=== PATIENT | female | born 1955 | race Caucasian/White ===

== ENCOUNTER 2023-04-16 11:00 | Outpatient (RCR) | payer BC, SELFPAY | END 2023-06-30 14:33 | disposition home or self-care (01) | PROVIDERS: PCP Family Medicine; Visit Provider Orthopaedic Surgery | DX: M54.50 Low back pain, unspecified (principal); Z96.641 Presence of right artificial hip joint; R53.1 Weakness; M25.551 Pain in right hip; Z51.89 Encounter for other specified aftercare | CPT/HCPCS: 97110; 97140; 97161 ==

== ENCOUNTER 2024-08-03 06:17 | Day surgery (SDC) | payer MEDICARE, BC, SELFPAY ==
[2024-08-03] VITALS (9 sets, daily range): BP systolic 139–157; BP diastolic 81–93; PULSE 72–88; RESP 16–20; TEMP 36.8; O2SAT 96–97; BMI 29.0
[2024-08-03] MEDS: LIDOCAINE 1%-EPI 1:100,000 20 ML INFILTRATI (07:00)
[2024-08-03] MEDS: BUPIVACAINE 0.5 %/EPI 1:200K INJECTION (07:00)
--- NOTE | 2024-08-03 07:09 | SUR.PREOP ---
SAME DAY SURGERY LOCAL INJECTION SITE VERIFICATION WAS PERFORMED BY SURGEON/PA AND PATIENT PRIOR TO LOCAL ANESTHETIC BEING INJECTED TO OPERATIVE SITE.
--- NOTE | 2024-08-03 07:38 | P.ORPRC_ITS ---
Procedure Note Date of procedure: 08/03/24 Procedure: Preop diagnosis: Left hand middle and ring finger stenosing tenosynovitis Postop diagnosis: Left hand middle and ring finger stenosing tenosynovitis Procedure: Left hand middle and ring finger A1 elvia release Anesthesia: Local Surgeon: Sarabjit Wiggins MD special education educational assistant: KRYSTAL Harper EBL: 2 mL Complications: None Specimens: None Drains: None Preoperative antibiotics: None Indications: The patient has a history of left upper extremity middle and ring finger painful catching and locking. Despite appropriate non operative management including flexor tendon sheath corticosteroid injections they continue to have symptoms. Operative intervention was recommended. The risks, benefits alternatives and expected outcomes were discussed in detail. These included but were not limited to: Infection, bleeding, injury to blood vessel or nerve, venous thromboembolism. All questions were answered to their satisfaction. The patient was placed supine on the operating room table. Local anesthesia was established with 0.5% Marcaine with epinephrine and 2% lidocaine with epinephrine. The hand was prepped and draped in usual sterile fashion. A transverse incision was made centered over the base of the middle and ring fingers in the distal palmar crease. Subcutaneous dissection was taken through the palmar fascia to the flexor tendons with the tenotomy scissors. The A1 elvia was released with the tenotomy scissors. Active flexion and extension of the fingers shows no catching or locking, no bowstringing of the flexor tendons. The wound was closed with interrupted nylon sutures. A dry dressing was applied. Sponge and needle counts were correct x 2. The patient tolerated the procedure well, there were no apparent complications. They were sent to same day surgery in satisfactory condition. Plan: Use of the hand as tolerates. Discontinue the intraoperative dressing on postoperative day 3 and may get the wound wet as tolerates. Follow up in the office in 2 weeks for a wound check and suture removal.
== END 2024-08-03 08:09 | disposition home or self-care (01) ==
LOC: OR 06:19
PROVIDERS: PCP Family Medicine; Visit Provider Orthopaedic Surgery
PROC: (CPT 26055; principal; 2024-08-03 07:15)
DX: M65.842 Other synovitis and tenosynovitis, left hand (principal); M65.332 Trigger finger, left middle finger; M65.342 Trigger finger, left ring finger
CPT/HCPCS: 26055 ×2; J3490

== ENCOUNTER 2024-12-29 10:52 | Emergency (ER) | payer MEDICARE, BC, SELFPAY ==
--- OUTSIDE RECORDS SUMMARY | 2024-12-29 10:54 | XMS_ITS | Continuity of Care Document ---
Author Organization [facility] Address [address] [place] [address] Phone Care Team Providers Care Custom Shoemaker Name Role Phone Elder LUCAS, PhD, Alexander Unavailable Unavai lable Allergies, Adverse Reactions, Alerts Substance Reaction Status Criticality Sulfa (Sulfonamide Antibiotics) Active No Information erythromycin base Active No Informa tion Medications Medication Instructions Dosage Effective Dates (start - stop) Status Comments TRAMADOL HCL (unknown strength) Not Available - Active VITAMIN D3 (unknown strength) Not Available - Active TYLENOL (unknown strength) Not Available - Active SINGULAIR (unknown strength) Not Available - Active DULOXETINE HCL (unknown strength) Not Available - Active DICLOFENAC SODIUM (unknown strength) Not Available - Active ROBERT-D 24 HOUR (unknown strength) Not Available - Active Procedures Procedure Date Office/Outpatient [place] [facility] [place] Directives Directive Yes / No Effective Date File Name No Information Encounters Encounter Description Practice Location Reason(s) For Visit Diagnoses Date Provider Providers Copied on Encounter [facility], [address], [place], [place], [id number], [place] tel:[phone] [facility] No Information 0 Elder Munoz. [facility], [address], [place], [address], [place]. [phone] Office/Outpat ient Visit,[facility], [facility], [address], [place], [place], [id number], [place] tel:[phone] [facility] [place] Osteoarthritis of hip, unspecified 9 Elder Munoz. [facility], [address], [place], [address], [place]. tel:[phone] Referring Provider: Vickie Parham , [facility] [address], [place], [address]. tel:[phone] Family History Family Member Type Diagnosis Age At Onset No Information Payers Payer name Insurance type Covered libertarian ID Nemo santiago(s) [facility] [id number] [facility] [id number] Social History Type Description Quantity Date Captured Comments Sex Female Smoking Status No Information Chief Complaint And Reason For Visit No Information Reason For Referral Reason For Referral No Information History Of Present Illness Encounter Date Complaint History Of Prese nt Illness No Information Functional Status Date Functional Assessmen t No Information Instructions Date Instruction Additional Infor mation No Information Assessments Type Assessment Date No Information Patient Care Teams Name Effective Dates (start - stop) Status Members No Information
--- OUTSIDE RECORDS SUMMARY | 2024-12-29 10:54 | XMS_ITS | Clinical Summary ---
Author Organization [facility] Address [address] [place] [address] Care Team Providers Care Flat Breakdown Processor Name Role Phone Vickie Parham MD Primary Care Provide r Allergies Active Allergy Reactions Criticality Noted Date Comments Erythromycin 03/13/2007 Guaifenesin Anaphylaxis 09/01/2008 Lisinopril Cough 09/30/2022 Sulfa (Sulfonamide Antibiotics) Edema,Erythema 09/16/2019 Per patient Azithromycin 03/13/2007 Medications Inhalational Spacing Device (POCKET CHAMBER)Indication s:Unspecified asthma(493.90) For home use. 1 Device 0 08/21/20 12 Active fexofenadine (ROBERT) 180 mg tabletIndications: Unspecified asthma(493.90) Take 1 tablet by mouth once daily. 30 tablet 11 04/27/20 13 Active Blood Pressure Test Kit-Large (QUICK RESPONSE BP MONITOR) KitIndications:Francia vated BP As directed. Arm cuff, diagnosis 401.0 hypertension 1 Kit 0 07/22/20 13 Active Foot Care Products padsIndications:Fl at feet, bilateral As directed. Bilateral insoles/arch supports for flat feet. 2 pair. 4 Each 02/21/20 17 Active Cholecalciferol, Vitamin D3, (VITAMIN D-3) 2,000 unit tablet Take 1 tablet by mouth once daily. 0 10/29/19 18 Active multivitamin (MVI) tablet Take 1 tablet by mouth once daily. 0 10/29/19 18 Active medication order composer [employer] 750 CBD oil - 5 drops sublingually morning and at bedtime 0 04/11/20 22 Active fluticasone (50 mcg per actuation) nasal solution (FLONASE)Indicatio ns:Allergic rhinitis, unspecified seasonality, unspecified trigger Inhale 2 Sprays to both nostrils once daily. 16 g 5 09/17/20 22 Active acyclovir (ZOVIRAX) 400 mg tabletIndications: Recurrent cold sores Take 1 Tablet (400 mg) by mouth three times daily. 21 Tablet 3 10/24/19 24 Active EPINEPHrine (EPIPEN) 0.3 mg/0.3 mL auto-injectorIndic ations:Allergy, subsequent encounter Use as directed 1 Each 1 10/24/19 24 Active diclofenac (VOLTAREN) 75 mg delayed-release tabletIndications: Arthralgia, unspecified joint Take 1 Tablet (75 mg) by mouth two times daily with meals. 180 Tablet 3 10/24/19 24 Active albuterol HFA (PRO-AIR; VENTOLIN; PROVENTIL) 90 mcg/actuation inhalerIndications :Mild intermittent reactive airway disease without complication (HC) Inhale 1-2 Puffs by mouth every 4 hours if needed for Shortness Of Breath or Wheezing. 1 Each 3 08/09/20 24 Active losartan (COZAAR) 50 mg tabletIndications: HTN (hypertension) Take 1 Tablet (50 mg) by mouth once daily. 90 Tablet 3 09/15/20 24 Active montelukast (SINGULAIR) 10 mg tabletIndications: Mild intermittent asthma without complication (HC) TAKE 1 TABLET(10 MG) BY MOUTH AT BEDTIME 90 Tablet 11/10/19 25 Active DULoxetine (CYMBALTA) 20 mg Delayed-release capsuleIndications :Fibromyalgia TAKE 1 CAPSULE(20 MG) BY MOUTH EVERY DAY 90 Capsule 11/10/19 25 Active rosuvastatin (CRESTOR) 5 mg tabletIndications: Mixed hyperlipidemia TAKE 1 TABLET(5 MG) BY MOUTH AT BEDTIME 90 Tablet 1 11/22/19 25 Active dwszrts-wndrvkxn-a utalbital (325-40-50 mg) capsuleIndications :Migraine equivalent Take 1 Capsule by mouth every 4 hours if needed for Migraine. MAX 6 CAPSULES DAILY 30 Capsule 12/29/19 25 Active Active Problems Problem Noted Date Diagnosed Date Degenerative tear of meniscus of left knee 01/16 HTN (hypertension) 09/28/2013 Osteoarthritis of left knee 04/05/2013 Degenerative meniscus tear 04/05/2013 Unspecified asthma(493.90) 02/09/2008 Allergic rhinitis, cause unspecified 02/09/2008 Migraine, unspecified, witho ut mention of intractable migraine without mention of status migrainosus 02/09/2008 Encounters Date Type Department Care Team Description 12/29/2024 Nurse Triage [facility] [address] [facility] [place] [address] Vickie Parham MD Head Injury 12/27/2024 Telephone [facility] [address] [place] [address] Vickie Parham MD Headache 2024 Refill [facility] [address] [place] [address] Vickie Parham MD Refill Request (Rosuvastatin) 11/09/2024 Refill [facility] [address] [facility] [place] [address] Vickie Parham MD Refill Request (Montelukast, Duloxetine) from Last 3 Months Immunizations Immunization Administration Dates Next Due AMB Influenza, IIV4 PF (=>6 mos Flulaval,Fluzone Fluarix)(Flu Clinic Only) 07/06/2020,07/13/2018,10/04/2014 COVID-19 VACCINE SPIKEVAX (M ODERNA 50MCG/0.5ML) 12YO+ PFS 07/23/2024,10/14/2023 COVID-19 vaccine (Moderna 100mcg/0.5mL) PF, MDV 01/04/2021,12/07/2020 COVID-19 vaccine (Pfizer-Bio NTech 30mcg/0.3mL) 12YO+ BIVALENT PF, MDV 09/09/2022 Hepatitis A (Adult) 04/27/2013 Hepatitis B (Adult) 03/14/1999,12/07/1998,1998 Influenza, IIV3 (Age >=3 years) 09/28/20 13,10/22/2012,08/06/2005,2003 Influenza, IIV4 11/24/2019,09/15/2017,07/05/2016 Influenza, Inactivated AIIV4 (Age 65+ Years) Preserv Free 10/14/2023,08/22/2022,08/23/2021 Influenza, Inactivated IIV3 (Age 65+ Years) Preserv Free 07/23/2024 Influenza, RIV3 (Age =>18 Years) 10/24/2015 Pneumococcal Conj 20-valent (Prevnar 20) 10/24/2023 Pneumococcal Poly,23-Valent (Pneumovax) 07/10/2021 Rabies Vaccine 08/31/2008 Td (Age >=7 Years) 04/09/2005 Tdap 09/17/2022,04/23/2012 Zoster (Shingrix-RZV, recombinant) 11/27/2021, Zoster (Zostavax-ZVL, live) 10/11/2013 Family History Medical History Relation Name Comments Allergies Brother 4 Hypertension Brother 5 Hypertension Brother 6 Other Brother 7 multiple sclero sis Hypertension Father Heart Disease Mother Other Mother Depression Cancer-breast No Family History Cancer-ovarian No Family History Relation Name Status Comments Brother 1 Alive Brother 2 Alive Brother 3 Alive Brother 4 Brother 5 Brother 6 Brother 7 Daughter Tamsen Alive Father (Age 47) [place] Maternal Grandfather Maternal Grandmother Mother Alive Paternal Grandfather Paternal Grandmother Son 1 Antoni Alive Son 2 Marlon Alive Social History Tobacco Use Types Packs/Day Years Used Date Smoking Tobacco: Never Smokeless Tobacco: Never Tobacco Cessation:Counseling Given: Yes Alcohol Use Standard Drinks/Week Comments No 0 (1 standard drink = 0.6 oz pur e alcohol) once a year PHQ-2 Answer Date Recorded PHQ-2 TOTAL SCORE 1 10/24/2023 Social Connections Answer Date Recorded Do you often feel lonely or isolated from those around you? 0 11/05/2023 Financial Resource Strain Answer Date R ecorded Difficulty of Paying Living Expenses 3 11/05/2023 Difficulty of Paying Living Expenses Not on file 11/05/2023 Food Insecurity Answer Date Recorded Do you worry your food will run out before you are able to buy more? 1 11/05/2023 Transportation Needs Answer Date Record ed Does lack of transportation keep you from medica l appointments? 1 11/05/2023 Does lack of transportation keep you from work, meetings or getting things that you need? 1 11/05/2023 Housing Stability Answer Date Recorded What is your housing situation today? 1 11/05/2023 Utilities Answer Date Recorded Do you have trouble paying f or utilities (for example, heat, electricity, water, phone)? 1 11/05/2023 Comments No Sex and Gender Information Value Date Recorded Sex Assigned at Not on file Legal Sex Female 5:24 AM VOCATIONAL DIRECTOR Gender Identity Not on file Sexual Orientation Not on file Occupation Industry Job Start Date Job End Date Not on file Not on file Not on file Not on file Obstetrics History Para Term AB IAB SAB Ectopic Multiple Livin g Live Births 4 3 3 3 Date Outcome GA Total Labor Labor/2nd/3rd Weight Sex Type Anes PTL Suzie A1 A5 Name Clin Term Term Term Last Filed Vital Signs Vital Sign Reading Time Taken Comments Blood Pressure 129/83 07/09/2024 10:48 AM CDT Pulse 70 07/09/2024 10:48 AM CDT Temperature 36.5 C (97.7 F) 07/09/2024 10:48 AM CDT Respiratory Rate 18 05/26/2021 9:27 AM CDT Oxygen Saturation 99% 07/09/2024 10:48 AM CDT Inhaled Oxygen Concentration - - Weight 77.7 kg (171 lb 6.4 oz) 05/25/2024 1:43 P M CDT Height 160 cm (5' 3) 12/26/2023 3:08 PM CDT Body Mass Index 30.36 12/26/2023 3:08 PM CDT Plan of Treatment Upcoming Encounters Date Type Department Care Team (Late st Contact Info) Description 01/25/2025 10:05 AM CDT Office Visit [facility] [address] [place] [address] Vickie Parham MD [address] [place] [address] Health Maintenance Due Date Last Done Comments RSV vaccine for adults or (1 - Risk 60-74 years 1-dose series) 2015 Medicare Wellness for age 65+ 2020 Depression screening for age 12+ 10/24/2024 10/24/2023, 09/17/2022, 01/27/2021, Additional history exists Mammogram for age 45-75 12/04/2024 12/04/19 24, 10/08/2022, 07/04/2020, Additional history exists BMI (ht and wt on same day) for age 18+ 12/25/2024 12/26/2023, 10/24/2023, 05/16/2023, Additional history exists COVID-19 vaccine series ( season) 2025 07/23/2024, 10/14/2023, 09/09/2022, Additional history exists Fecal testing sDNA-FIT (Belsano guard) for age 45-75 11/30/2026 11/30/2023 Lipids for age 45-75 10/24/2028 10/24/2023, 03/24/2023, 12/10/2022, Additional history exists Tetanus booster 09/17/2032 09/17/2022, 04/12, 04/09/2005 Hepatitis C screening for ag e 18-79 Completed 01/26/2021 Zoster (shingles) series for age 50+ Completed 11/27/2021, 07/20/2021, 10/11/2013 Tdap Completed 09/17/2022, 04/23/2012 DEXA/DXA scan for age 65+ Completed 10/08/2022 Pneumococcal series for age 50+ Completed , 07/10/2021 Influenza Vaccine Completed 07/23/2024, , 08/22/2022, Additional history exists Procedures Procedure Name Priority Date/Time Associated Diagnosis Comments XR MAMMO BILAT SCREENING Routine 12/04/2023 4:13 PM VOCATIONAL DIRECTOR Encounter for screening mammogram for malignant neoplasm of breast SDNA-FIT EXTERNAL (COLOGUARD) Routine 11/30/2023 10:25 AM VOCATIONAL DIRECTOR Screening for colon cancer LIPID PANEL W REFLEX MEASURED LDL Routine 10/24/2023 10:16 AM VOCATIONAL DIRECTOR Mixed hyperlipidemia XR DXA BONE DENSITY 2 SITES AXIAL Routine 10/08/2022 3:55 PM VOCATIONAL DIRECTOR Menopause ANTI HCV Routine 01/26/2021 9:15 AM CDT Encounter for hepatitis C screening test for low risk patient from Last 3 Months or Most Recently Relevant to Health Maintenance Results * XR MAMMO BILAT SCREENING (12/04/2023 4:13 PM VOCATIONAL DIRECTOR) Anatomical Region Laterality Modality BREASTS, Breast Left, Breast Right Bilateral Mammography Impressions 12/05/2023 2:28 PM VOCATIONAL DIRECTOR There is no radiographic evidence for malignancy. Recommend annual mammograms. MAMMOGRAM ASSESSMENT: ACR 1 Negative PATIENTS: You will also receive a letter with your examination results in an easy to read format. If you have questions about your results, please contact your referring provider. Narrative 12/05/2023 2:28 PM VOCATIONAL DIRECTOR For Patients: As a result of the Century Cures Act, medical imaging exams and procedure reports are released immediately into your electronic medical record. You may view this report before your referring provider. If you have questions, please contact your health care provider. XR MAMMO BILAT SCREENING [[id number]] CLINICAL HISTORY: This is an asymptomatic 68 y.o. patient. INDICATION FOR EXAM: Mammogram Screening. TECHNIQUE: CC & MLO views were obtained. This study was evaluated with the assistance of Computer-Aided Detection. COMPARISON FILM: Yes 10/08/22 [employer] [facility] 07/04/20 [employer] FINDINGS: The breasts have scattered areas of fibroglandular density. There are no dominant masses, suspicious micro calcifications or areas of architectural distortion. us Vickie Parham MD MAMMO Final Result * SDNA-FIT EXTERNAL (COLOGUARD) (11/30/2023 10:25 AM VOCATIONAL DIRECTOR) NONINV COLON CA DNA+OCC BLD SCRN STL-IMP Negative Negative 12/08/2023 4:38 PM VOCATIONAL DIRECTOR [facility] (CLIA #:[id number]) Comment: NEGATIVE TEST RESULT. A negative Cologuard result indicates a low likelihood that a colorectal cancer (CRC) or advanced adenoma (adenomatous polyps with more advanced pre-malignant features) is present. The chance that a person with a negative Cologuard test has a colorectal cancer is less than 1 in 1500 (negative predictive value >99.9%) or has an advanced adenoma is less than 5.3% (negative predictive value 94.7%). These data are based on a prospective cross-sectional study of 10,000 individuals at average risk for colorectal cancer who were screened with both Cologuard and colonoscopy. (Mary Fry et al, N Engl J Med 2014;370(14):7775-6457) The normal value (reference range) for this assay is negative. COLOGUARD RE-SCREENING RECOMMENDATION: Periodic colorectal cancer screening is an important part of preventive healthcare for asymptomatic individuals at average risk for colorectal cancer. Following a negative Cologuard result, the [place] [employer] and U.S. Multi-Society Task Force screening guidelines recommend a Cologuard re-screening interval of 3 years. References: [place] [employer] Guideline for Colorectal Cancer Screening: https://www.cancer.org/cancer/jsdjh-jjdukd-yiyodm/hbqdqvthr-mltiblvne-pwplwkv/ac s-rec ommendations.html.; Brayan DK, Ronnie DAVISON, Pipo BishopK, Colorectal Cancer Screening: Recommendations for Physicians and Patients from the U.S. Multi-Society Task Force on Colorectal Cancer Screening , Am J Gastroenterology 2017; 112:4475-4942. TEST DESCRIPTION: Composite algorithmic analysis of stool DNA-biomarkers with hemoglobin immunoassay. Quantitative values of individual biomarkers are not reportable and are not associated with individual biomarker result reference ranges. Cologuard is intended for colorectal cancer screening of adults of either sex, 45 years or older, who are at average-risk for colorectal cancer (CRC). Cologuard has been approved for use by the U.S. FDA. The performance of Cologuard was established in a cross sectional study of average-risk adults aged 50-84. Cologuard performance in patients ages 45 to 49 years was estimated by sub-group analysis of near-age groups. Colonoscopies performed for a positive result may find as the most clinically significant lesion: colorectal cancer [4.0%], advanced adenoma (including sessile serrated polyps greater than or equal to 1cm diameter) [20%] or non- advanced adenoma [31%]; or no colorectal neoplasia [45%]. These estimates are derived from a prospective cross-sectional screening study of 10,000 individuals at average risk for colorectal cancer who were screened with both Cologuard and colonoscopy. (Mary Juarez al, N Engl J Med 2014;370(14):1678-7856.) Cologuard may produce a false negative or false positive result (no colorectal cancer or precancerous polyp present at colonoscopy follow up). A negative Cologuard test result does not guarantee the absence of CRC or advanced adenoma (pre-cancer). The current Cologuard screening interval is every 3 years. ([place] [employer] and U.S. Multi-Society Task Force). Cologuard performance data in a 10,000 patient pivotal study using colonoscopy as the reference method can be accessed at the following location: www.[employer]/results. Additional description of the Cologuard test process, warnings and precautions can be found at www.xaitmentogSmartlingrd.com. Stool specimen (specimen) (Rectum) 11/30/2023 10:25 AM VOCATIONAL DIRECTOR 12/02/2023 12:57 PM VOCATIONAL DIRECTOR us Vickie Parham MD URINE Final Result [facility] (CLIA #:[id number]) [place] [address], * LIPID PANEL W REFLEX MEASURED LDL (10/24/2023 10:16 AM VOCATIONAL DIRECTOR) CHOLESTEROL,TOTAL 161 100 - 199 mg/dL 10/24/2023 5:35 PM VOCATIONAL DIRECTOR [facility] Comment: Cholesterol, Total Reference Ranges Desirable <200 mg/dL Borderline 200-239 mg/dL High >=240 mg/dL TRIGLYCERIDES 143 <150 mg/dL 10/24/2023 5:35 PM VOCATIONAL DIRECTOR [facility] HDL CHOLESTEROL 46 >40 mg/dL 5:35 PM VOCATIONAL DIRECTOR [facility] NON-HDL CHOLESTEROL 115 <145 mg/dl 10/24/2023 5:35 PM VOCATIONAL DIRECTOR [facility] CHOL/HDL RATIO 3.50 <4.50 10/24/2023 5:35 PM VOCATIONAL DIRECTOR [facility] LDL CHOLESTEROL 86 <=130 mg/dL 10/24/2023 5:35 PM VOCATIONAL DIRECTOR [facility] VLDL CHOLESTEROL 29 <=30 mg/dL 10/24/2023 5:35 PM VOCATIONAL DIRECTOR [facility] PROVIDER ORDERED STATUS RANDOM 10/24/2023 5:35 PM VOCATIONAL DIRECTOR [facility] Blood BLOOD SPECIMEN / Unknown Venipuncture / Unknown 10/24/2023 10:16 AM VOCATIONAL DIRECTOR 10/24/2023 10:17 AM VOCATIONAL DIRECTOR us Vickie Parham MD CHEMISTRY Final Result [facility] [address] [place] [address], * (ABNORMAL) XR DXA BONE DENSITY 2 SITES AXIAL (10/08/2022 3:55 PM VOCATIONAL DIRECTOR) Anatomical Region Laterality Modality Spine, HIPS, HIPL, HIPR Other Impressions 10/11/2022 1:43 PM VOCATIONAL DIRECTOR Osteopenia. RECOMMENDATIONS: The National Osteoporosis Foundation recommends pharmacologic treatment for patients with T-scores of -2.5 or less, patients with prior history of fragility fractures, or patients with 10-year probability of greater than 3% at hips or greater than 20% of suffering major osteoporotic fractures. Recommend continued optimization of calcium and vitamin D intake through dietary means and/or supplementation and regular exercise. Repeat scan recommended in 3-5 years. Elissa Rogel PA-C [facility] 10/11/2022 Narrative 10/11/2022 1:43 PM VOCATIONAL DIRECTOR For Patients: Results are automatically released to your [employer] [facility]) account once available, in compliance with federal regulations. This means that you may see your results before your provider has had a chance to review them. Please allow 2-3 business days for your provider to comment on the results. XR DXA Bone Mineral Density (BMD) EXAM LOCATION: [facility] [address] [facility] [address] PATIENT NAME: Gerber Aguillon DATE OF : 1955 EXAM DATE: 10/08/2022 REQUESTING PROVIDER: Vickie Parham MD GENDER AT : female HEIGHT: 5' 3.25 (09/17/2022) WEIGHT: 174 lb 3.2 oz (09/17/2022) MENOPAUSAL STATUS: Postmenopausal RACE/ETHNICITY: White RISK FACTORS: Height Loss (2 inches or more) and White Race CURRENT MEDICATION FOR BONE LOSS: NONE INDICATION: Menopause COMPARISON DATE(S): None DXA scans are compared to prior studies for a patient only when the two (or more) studies were performed on the same scanner. It is not possible to compare data generated on one scanner to data from another because there are not standards in DXA equipment. This applies even if the two scanners are made by the same window covering sales consultant. PROCEDURE: Dual-energy x-ray absorptiometry performed with routine technique. Reporting is completed in the form of a T-score. The T-score represents the standard deviation from peak bone mass based on young healthy adult. A Z-score is used for diagnosis in premenopausal women, and for men under the age of 50. FINDINGS: RESULT LUMBAR SPINE L1-L4(3) BMD: 1.385 g/cm2 T-Score: + 1.6 Z-Score: + 2.8 Change from prior: None RESULTS FEMUR Left femoral neck BMD: 0.876 g/cm2 T-Score: - 1.2 Z-Score: + 0.1 Change from prior: None Left hip BMD: 0.956 g/cm2 T-Score: - 0.4 Z-Score: + 0.5 Change from prior: None WHO criteria: Normal: T-score at or above -1 SD Osteopenia: T-score between -1.1 and -2.4 SD Osteoporosis: T-score at or below -2.5 SD FRAX RISK CALCULATION (USED FOR OSTEOPENIA ONLY): 10-year probability of major osteoporotic fracture: 8.3%. 10-year probability of hip fracture: 0.7%. us Vickie Parham MD DEXA Final Result * ANTI HCV (01/26/2021 9:15 AM CDT) HEPATITIS C ANTIBODY Non-React estrellita Non-React estrellita 01/26/2021 7:05 PM CDT [facility] Comment:Antibodies to HCV no t detected; does not exclude the possibility of exposure to HCV. Blood BLOOD SPECIMEN / Unknown Venipuncture / Unknown 01/26/2021 9:15 AM CDT 01/26/2021 9:15 AM CDT us Vickie Parham MD SEND OUTS Final Result [facility] [address] [place] [address], from Last 3 Months or Most Recently Relevant to Health Maintenance Insurance [employer] BLUE MR PB ONLY WC WORKERS COMP [facility] MOTOR VEHICLE INS ACCIDENT FUND [place] BOW[place] [id number] [facility] [place] [address] [facility] [address] [facility] [address] [place] [id number] Care Teams Flat Breakdown Processor Relationship Specialty Start Date End Date Vickie Parham MD [address] [place] [address] PCP - General 02/28/06
[2024-12-29 10:55] VITALS: BP 154/90; PULSE 84; RESP 18; TEMP 37.2; O2SAT 98; BMI 28.1
--- NOTE | 2024-12-29 11:24 | CRLHL7_ITS ---
For Patients: As a result of the Century Cures Act, medical imaging exams and procedure reports are released immediately into your electronic medical record. You may view this report before your referring provider. If you have questions, please contact your health care provider. INDICATION: Fall 5 days ago. Hit head TECHNIQUE: CT of the head was performed without IV contrast. COMPARISON: None. FINDINGS: Parenchyma: No acute hemorrhage, infarction, or mass. Mild scattered periventricular white matter hypoattenuation is nonspecific and is favored to represent chronic small vessel ischemic disease. Ventricles and extra-axial spaces: Mild involutional changes. Visualized paranasal sinuses: Clear. Mastoid air cells: Clear. Bones: No focal abnormality. Additional comment: None. IMPRESSION: No acute intracranial abnormality. Please note that all CT scans at this facility use dose modulation, iterative reconstruction, and/or weight-based dosing when appropriate to reduce radiation dose to as low as reasonably achievable. Dictated by David Pritchard MD @ 12/29/2024 11:54:44 AM (Electronically Signed)
--- NOTE | 2024-12-29 11:25 | ED_ITS ---
HPI - General Adult General Chief complaint: Fall/Minor Trauma Stated complaint: Post head injury concerns Time Seen by Provider: 12/29/24 11:01 History of Present Illness HPI narrative: This 69-year-old female comes in reporting feeling of off balance at times. She states that she hit her head 5 days ago but did not have loss of consciousness. She did not have immediate headache or other symptoms afterwards but did develop a good migraine headache a couple days ago. She does get migraine headaches occasionally. In the past few days she has felt off balance at times and decided to use her walking stick to assist with walking. She does not report any neurologic deficits. She has not had any vomiting or altered level of consciousness. Related Data Home Medications ?Medication ?Instructions ?Recorded ?Confirmed acetaminophen 500 mg tablet 500 mg PO 09/09/22 12/06/24 acyclovir 400 mg tablet 400 mg PO 09/09/22 12/06/24 ahsuuiascc-acgqoat-chbkhkux 50 1 cap PO 09/09/22 12/06/24 mg-325 mg-40 mg capsule duloxetine 20 mg capsule,delayed ea PO 09/09/22 12/06/24 release montelukast 10 mg tablet 10 mg PO 09/09/22 12/06/24 epinephrine 0.3 mg/0.3 mL IM DIRECTED allergies 01/22/23 12/06/24 injection, auto-injector rosuvastatin 5 mg tablet 5 mg PO DAILY 01/22/23 12/29/24 losartan 50 mg tablet 50 mg PO DAILY 08/16/24 12/29/24 albuterol sulfate 90 mcg/actuation 1 - 2 puff inhalation Q4H PRN 09/15/24 12/29/24 aerosol inhaler wheezing diclofenac sodium 75 mg 75 mg PO BID 12/06/24 12/29/24 tablet,delayed release Previous Rx's ?Medication ?Instructions ?Recorded eqomxxhijh-tvahwjmlmeers-mehatlgw 1 tab PO Q6H PRN pain #20 tabs 12/29/24 50 mg-325 mg-40 mg tablet (Esgic) Allergies Allergy/AdvReac Type Severity Reaction Status Date / Time guaifenesin Allergy Severe throat Verified 12/29/24 11:00 swelling azithromycin Allergy Verified 12/29/24 11:00 erythromycin base Allergy Verified 12/29/24 11:00 perfume Allergy mouth Verified 12/29/24 11:00 tingling Sulfa (Sulfonamide Allergy Verified 12/29/24 11:00 Antibiotics) Review of Systems Status of ROS: Reports: 10 or more systems reviewed and unremarkable except as noted in History and below Narrative: Constitutional: No fevers, no weight gain or loss. Eyes: No discharge. No vision changes. HENT: No congestion, no sore throat, no ear pain. Cardiovascular: No chest pain, no palpitations. Respiratory: No shortness of breath, no wheezes, no cough. Gastrointestinal: No abdominal pain, no vomiting, no diarrhea. Genitourinary: No dysuria, no hematuria. Musculoskeletal: Normal range of motion. Skin: No rashes, no pruritis. Neurological: No dizziness, weakness, sensory change, speech change. Endo/Heme/Allergies: No bruising or bleeding. No polydipsia. Pysch: no suicidality, no anxiety, no insomnia. All other systems reviewed and are negative. [facility] Medical History Fibromyalgia ?M79.7 - Fibromyalgia (ICD-10) Scoliosis ?M41.9 - Scoliosis, unspecified (ICD-10) Hypertension ?I10 - Essential (primary) hypertension (ICD-10) Asthma ?J45.909 - Unspecified asthma, uncomplicated (ICD-10) Surgical History Status post trigger finger release (08/03/24) ?Z98.890 - Other specified postprocedural states (ICD-10) History of total left knee replacement (01/08/22) ?Z96.652 - Presence of left artificial knee joint (ICD-10) History of total right hip arthroplasty (04/04/20) ?Z96.641 - Presence of right artificial hip joint (ICD-10) Social History (Reviewed 12/06/24 @ 13:37 by Sandy Delgado ~ [facility], [facility]) Smoking Status: Never smoker Do you use any of these nicotine containing products: None Second hand tobacco smoke exposure: No Non-prescribed substance use: denies use service: No Exam Narrative: Exam Narrative: Constitutional: Well-developed, well-nourished, no acute distress. HEENT: Normocephalic, atraumatic. Neck: Normal range of motion. Nontender. Supple. Heart: Regular. No murmurs. Normal rate. Intact distal pulses. Lungs: Clear to auscultation. No chest discomfort. No wheezes, rhonchi, or rales. Abdomen: Normal bowel sounds. Nontender. No rebound tenderness. Genitalia: Deferred. Back: No midline tenderness. Normal range of motion. Extremities: Normal range of motion. No injury. Skin: Intact. No rash. Warm. No erythema or pallor. Neurologic: No altered sensation. No weakness. Alert and oriented. No facial asymmetry. Tongue is midline. Aikdmz-vx-qebh is normal. No pronator drift. Hairspring Truer strength is equal bilaterally. Able to raise each leg from the bed. Psychiatric: No suicidality. No anxiety or depression. No insomnia. Nursing notes and vitals signs are reviewed. Const: Vital Signs, click to edit/add: Vital Signs - 24 hr 12/29/24 10:55 Temperature 98.9 F Pulse Rate [Right Pulse Oximeter] 84 Respiratory Rate 18 Blood Pressure [Ri ght Upper Arm] 154/90 H Pulse Oximetry 98 Oxygen Delivery Me thod Room Air Course Vital Signs Vital signs: Initial Vital Signs Temperature 98.9 F 12/29/24 10:55 Temperature Source Temporal Artery Scan 12/29/24 10:55 Pulse Rate 84 12/29/24 10:55 Pulse Rhythm Regular 12/29/24 10:55 Pulse Strength 3+ Normal 12/29/24 10:55 Respiratory Rate 18 12/29/24 10:55 Blood Pressure 154/90 H 12/29/24 10:55 Blood Pressure Mean 111 H 12/29/24 10:55 Blood Pressure Position Sitting 12/29/24 10:55 Pulse Oximetry 98 12/29/24 10:55 Oxygen Delivery Method Room Air 12/29/24 10:55 Vital Signs Temperature 98.9 F 12/29/24 10:55 Pulse Rate 84 12/29/24 10:55 Respiratory Rate 18 12/29/24 10:55 Blood Pressure 154/90 H 12/29/24 10:55 Pulse Oximetry 98 12/29/24 10:55 Oxygen Delivery Method Room Air 12/29/24 10:55 Temperature 98.9 F 12/29/24 10:55 Pulse Rate 84 12/29/24 10:55 Respiratory Rate 18 12/29/24 10:55 Blood Pressure 154/90 H 12/29/24 10:55 Pulse Oximetry 98 12/29/24 10:55 Oxygen Delivery Method Room Air 12/29/24 10:55 Medical Decision Making MDM Narrative Medical decision making narrative: This patient comes in reporting some occasions of feeling a bit off balance. She did hit her head about 5 days ago but did not have loss of consciousness. I did acquire CT scan of her head and took labs today and all of these results returned with normal findings. This was reassuring to the patient. I did discuss matters pertaining to concussion if she may have sustained such and gave guidelines for increasing activity as tolerated. The patient does take Esgic Plus as needed for migraine type headaches and states that she just has 1 tablet left. I did agree to provide a prescription for this medicine for her. Lab Data Labs: Lab Results 12/29/24 Range/Units 11:30 WBC 6.06 (4.50-11.00) K/uL RBC 4.54 (4.00-5.20) m/uL Hgb 13.3 (12.0-16.0) gm/dL Hct 39.4 (33.0-51.0) % MCV 87 (80-100) fL MCH 29 (26-34) pg MCHC 34 (32-36) gm/dL RDW Coeff of Dariusz 11.9 (11.5-15.5) % Plt Count 272 (140-440) K/uL Neut % (Auto) 62.8 (42.0-72.0) % Lymph % (Auto) 28.4 (20-44) % Pondera % (Auto) 6.8 (0.0-11.0) % Eos % (Auto) 1.5 (0.0-7.0) % Baso % (Auto) 0.3 (0.0-3.0) % Neut # (Auto) 3.81 (1.7-7.0) K/uL Lymph # (Auto) 1.72 (0.90-2.90) K/uL Pondera # (Auto) 0.40 (0.00-0.90) K/UL Eos # (Auto) 0.09 (0.00-0.50) K/uL Baso # (Auto) 0.02 (0.00-0.30) K/uL Abs Immat Gran (auto) 0.01 (0.00-0.30) K/uL Imm/Tot Granulo (auto) 0.2 % Sodium 137 (135-149) mmol/L Potassium 4.1 (3.6-5.1) mmol/L Chloride 102 (96-114) mmol/L Carbon Dioxide 27 (20-32) mmol/L Anion Gap 8 (7-15) mEq/L BUN 23 (7-30) mg/dL Creatinine 0.6 (0.5-1.5) mg/dL Estimated Creat Clear 47.78 Estimated GFR 97 ml/min Glucose 105 (60-115) mg/dL Calcium 9.4 (8.4-10.6) mg/dL Discharge Plan Discharge Clinical Impression: Closed head injury Patient Disposition: Home, Self-Care Condition: Stable Additional Instructions: Use wsrd-iqo-sddctwb medicines as needed and directed. Increase activity as tolerated. Follow up with MD return if worsening. Prescriptions: New dsyszwwkgb-hmtappmgdomjm-qjkk [Esgic] 50-325-40 mg tablet 1 tab PO Q6H PRN (Reason: pain) Qty: 20 2RF No Action montelukast 10 mg tablet 10 mg PO vxowxaugjg-lcogwrd-yloqodah 50-325-40 mg capsule 1 cap PO Patient Comments: TAKE 1 CAPSULE BY MOUTH EVERY 4 HOURS NEEDED FOR MIGRAINE. MAX 6 CAPSULES DAILY duloxetine 20 mg capsule,delayed release(DR/EC) PO acyclovir 400 mg tablet 400 mg PO acetaminophen 500 mg tablet 500 mg PO diclofenac sodium 75 mg tablet,delayed release (DR/EC) 75 mg PO BID albuterol sulfate 90 mcg/actuation HFA aerosol inhaler 1 - 2 puff inhalation Q4H PRN (Reason: wheezing) rosuvastatin 5 mg tablet 5 mg PO DAILY epinephrine 0.3 mg/0.3 mL auto-injector IM DIRECTED losartan 50 mg tablet 50 mg PO DAILY Follow Up/Referrals: Vickie Parham MD [Primary Care Provider] - Stand Alone Forms: [employer] Info Instructions
[2024-12-29 11:37] LABS: Basophils Absolute Auto 0.02 K/uL (0.00-0.30); Basophils Percent Auto 0.3 % (0.0-3.0); Eosinophils Absolute Auto 0.09 K/uL (0.00-0.50); Eosinophils Percent Auto 1.5 % (0.0-7.0); Hematocrit 39.4 % (33.0-51.0); Hemoglobin* 13.3 gm/dL (12.0-16.0); Immature Granulocytes Abs Auto 0.01 K/uL (0.00-0.30); Immature Granulocytes Pct Auto 0.2 %; Lymphocytes Absolute Auto 1.72 K/uL (0.90-2.90); Lymphocytes Percent Auto 28.4 % (20-44); Mean Corpuscular HGB Conc 34 gm/dL (32-36); Mean Corpuscular Hemoglobin 29 pg (26-34); Mean Corpuscular Volume 87 fL (80-100); Monocytes Percent Auto 6.8 % (0.0-11.0); Neutrophils Absolute Auto 3.81 K/uL (1.7-7.0); Neutrophils Percent Auto 62.8 % (42.0-72.0); Platelet Count* 272 K/uL (140-440); RDW Coefficient of Variation % 11.9 % (11.5-15.5); Red Blood Count 4.54 m/uL (4.00-5.20); White Blood Count* 6.06 K/uL (4.50-11.00)
[2024-12-29 11:39] LABS: Slide Review Reflex No
[2024-12-29 11:48] VITALS: BP 156/95; PULSE 79; O2SAT 96
[2024-12-29 11:49] VITALS: PULSE 80; O2SAT 96
[2024-12-29 11:51] LABS: Chloride* 102 mmol/L (96-114); Potassium* 4.1 mmol/L (3.6-5.1); Sodium* 137 mmol/L (135-149)
[2024-12-29 11:54] LABS: Anion Gap 8 mEq/L (7-15); Blood Urea Nitrogen* 23 mg/dL (7-30); Calcium* 9.4 mg/dL (8.4-10.6); Carbon Dioxide* 27 mmol/L (20-32); Creatinine* 0.6 mg/dL (0.5-1.5); Est. Creatinine Clearance* 47.78; Estimated Glomerular Filt Rate 97 ml/min; Glucose* 105 mg/dL (60-115)
[2024-12-29 12:00] VITALS: PULSE 75; O2SAT 100
[2024-12-29 12:02] VITALS: BP 159/96; PULSE 79; O2SAT 97
--- OUTSIDE RECORDS SUMMARY | 2024-12-29 12:09 | XMS_ITS | Continuity of Care Document ---
Author Organization [facility] Address [address] [place] [address] Phone Care Team Providers Care Jogger Operator Name Role Phone Elder LUCAS, PhD, Alexander [...] - Active Procedures Procedure Date Office/Outpatient Visit,New, [facility] [place] Advance Directives Directive Yes / No Effective Date File Name No Information Encounters Encounter Description Practice Location Reason(s) For Visit Diagnoses Date Provider Providers Copied on Encounter [facility], [address], [place], [place], [id number], [place] tel:[phone] [employer] No Information 0 Elder Munoz. [facility], [address], [place], [address], [place]. [phone] Office/Outpat ient Visit,[facility], [facility], [address], [place], [place], [id number], [place] tel:[phone] [facility] [place] Osteoarthritis of hip, unspecified 9 Elder Munoz. [facility], [address], [place], [address], [place]. tel:[phone] Referring Provider: Vickie Parham , [facility] [address], [place], [address]. tel:[phone] Family History Family Member Type Diagnosis Age At Onset No Information Payers Payer name Insurance type Covered republican ID Nemo santiago(s) [facility] [id number] [facility] [id number] Social History Type Description Quantity Date Captured [...]
--- OUTSIDE RECORDS SUMMARY | 2024-12-29 12:10 | XMS_ITS | Clinical Summary ---
Author Organization [employer] [facility] Address [address] [place] [id number] Care Team Providers Care District Medical Examiner Name Role Phone Vickie Parham MD Primary [...] BEDTIME 90 Tablet 1 11/22/19 25 Active cvpxbpy-jfujlxtd-s utalbital (325-40-50 mg) capsuleIndications :Migraine equivalent Take [...] Department Care Team Description 12/29/2024 Nurse Triage [facility] [address] [facility] [place] [address] Vickie Parham MD Head Injury 12/27/2024 Telephone [facility] [address] [place] [address] Vickie Parham MD Headache 2024 Refill [facility] [address] [place] [address] Vickie Parham MD Refill Request (Rosuvastatin) 11/09/2024 Refill [facility] [address] [facility] [place] [address] Vickie Parham MD Refill Request (Montelukast, Duloxetine) [...] 7 Daughter Tamsen Alive Father (Age 47) [place] Maternal Grandfather Maternal Grandmother Mother Alive Paternal [...] on file Legal Sex Female 5:24 AM MACHINE MAINTENANCE SERVICER Gender Identity Not on file Sexual Orientation [...] Description 01/25/2025 10:05 AM CDT Office Visit [facility] [address] [place] [address] Vickie Parham MD [address] [place] [address] Health Maintenance Due Date Last Done Comments [...] 09/09/2022, Additional history exists Fecal testing sDNA-FIT ([place] guard) for age 45-75 11/30/2026 11/30/2023 Lipids [...] MAMMO BILAT SCREENING Routine 12/04/2023 4:13 PM MACHINE MAINTENANCE SERVICER Encounter for screening mammogram for malignant neoplasm of breast SDNA-FIT EXTERNAL (COLOGUARD) Routine 11/30/2023 10:25 AM MACHINE MAINTENANCE SERVICER Screening for colon cancer LIPID PANEL W REFLEX MEASURED LDL Routine 10/24/2023 10:16 AM MACHINE MAINTENANCE SERVICER Mixed hyperlipidemia XR DXA BONE DENSITY 2 SITES AXIAL Routine 10/08/2022 3:55 PM MACHINE MAINTENANCE SERVICER Menopause ANTI HCV Routine 01/26/2021 9:15 AM CDT Encounter for hepatitis C screening test for low risk patient from Last 3 Months or Most Recently Relevant to Health Maintenance Results * XR MAMMO BILAT SCREENING (12/04/2023 4:13 PM MACHINE MAINTENANCE SERVICER) Anatomical Region Laterality Modality BREASTS, Breast Left, Breast Right Bilateral Mammography Impressions 12/05/2023 2:28 PM MACHINE MAINTENANCE SERVICER There is no radiographic evidence for malignancy. Recommend annual mammograms. MAMMOGRAM ASSESSMENT: ACR 1 Negative PATIENTS: You will also receive a letter with your examination results in an easy to read format. If you have questions about your results, please contact your referring provider. Narrative 12/05/2023 2:28 PM MACHINE MAINTENANCE SERVICER For Patients: As a result of the Century Cures Act, medical imaging exams and procedure reports are released immediately into your electronic medical record. You may view this report before your referring provider. If you have questions, please contact your health care provider. XR MAMMO BILAT SCREENING [[id number]] CLINICAL HISTORY: This is an asymptomatic 68 y.o. patient. INDICATION FOR EXAM: Mammogram Screening. TECHNIQUE: CC & MLO views were obtained. This study was evaluated with the assistance of Computer-Aided Detection. COMPARISON FILM: Yes 10/08/22 [employer] 07/04/20 [employer] FINDINGS: The breasts have scattered areas of fibroglandular density. There are no dominant masses, suspicious micro calcifications or areas of architectural distortion. us Vickie Parham MD MAMMO Final Result * SDNA-FIT EXTERNAL (COLOGUARD) (11/30/2023 10:25 AM MACHINE MAINTENANCE SERVICER) NONINV COLON CA DNA+OCC BLD SCRN STL-IMP Negative Negative 12/08/2023 4:38 PM MACHINE MAINTENANCE SERVICER [employer] (CLIA #:[id number]) Comment: NEGATIVE TEST RESULT. A negative Cologuard [...] Fry et al, N Engl J Med 2014;370(14):9402-8006) The normal value (reference range) for this assay is negative. COLOGUARD RE-SCREENING RECOMMENDATION: Periodic colorectal cancer screening is an important part of preventive healthcare for asymptomatic individuals at average risk for colorectal cancer. Following a negative Cologuard result, the [place] Cancer Society and U.S. Multi-Society Task Force screening guidelines recommend a Cologuard re-screening interval of 3 years. References: [place] [employer] Society Guideline for Colorectal Cancer Screening: https://www.cancer.org/cancer/aorla-phbqjz-fudxtl/bkffmulyp-zakrxvzbk-vytsvkl/ac s-rec ommendations.html.; Brayan DK, Ronnie DAVISON, Pipo BishopK, Colorectal Cancer Screening: Recommendations for Physicians and Patients from the U.S. Multi-Society Task Force on Colorectal Cancer Screening , Am J Gastroenterology 2017; 112:0874-4317. TEST DESCRIPTION: Composite algorithmic analysis of stool [...] (Mary Juarez al, N Engl J Med 2014;370(14):6720-1831.) Cologuard may produce a false negative or false positive result (no colorectal cancer or precancerous polyp present at colonoscopy follow up). A negative Cologuard test result does not guarantee the absence of CRC or advanced adenoma (pre-cancer). The current Cologuard screening interval is every 3 years. ([place] Cancer Society and U.S. Multi-Society Task Force). Cologuard performance data in a 10,000 patient pivotal study using colonoscopy as the reference method can be accessed at the following location: www.BabyList/results. Additional description of the Cologuard test process, warnings and precautions can be found at www.[employer].com. Stool specimen (specimen) (Rectum) 11/30/2023 10:25 AM MACHINE MAINTENANCE SERVICER 12/02/2023 12:57 PM MACHINE MAINTENANCE SERVICER us Vickie Parham MD URINE Final Result [employer] (CLIA #:[id number]) [place] [address], * LIPID PANEL W REFLEX MEASURED LDL (10/24/2023 10:16 AM MACHINE MAINTENANCE SERVICER) CHOLESTEROL,TOTAL 161 100 - 199 mg/dL 10/24/2023 5:35 PM MACHINE MAINTENANCE SERVICER [facility] Comment: Cholesterol, Total Reference Ranges Desirable <200 mg/dL Borderline 200-239 mg/dL High >=240 mg/dL TRIGLYCERIDES 143 <150 mg/dL 10/24/2023 5:35 PM MACHINE MAINTENANCE SERVICER [facility] HDL CHOLESTEROL 46 >40 mg/dL 5:35 PM MACHINE MAINTENANCE SERVICER [facility] NON-HDL CHOLESTEROL 115 <145 mg/dl 10/24/2023 5:35 PM MACHINE MAINTENANCE SERVICER [facility] CHOL/HDL RATIO 3.50 <4.50 10/24/2023 5:35 PM MACHINE MAINTENANCE SERVICER [facility] LDL CHOLESTEROL 86 <=130 mg/dL 10/24/2023 5:35 PM MACHINE MAINTENANCE SERVICER [facility] VLDL CHOLESTEROL 29 <=30 mg/dL 10/24/2023 5:35 PM MACHINE MAINTENANCE SERVICER [facility] PROVIDER ORDERED STATUS RANDOM 10/24/2023 5:35 PM MACHINE MAINTENANCE SERVICER [facility] Blood BLOOD SPECIMEN / Unknown Venipuncture / Unknown 10/24/2023 10:16 AM MACHINE MAINTENANCE SERVICER 10/24/2023 10:17 AM MACHINE MAINTENANCE SERVICER us Vickie Parham MD CHEMISTRY Final Result [facility] [address] [place] [address], * (ABNORMAL) XR DXA BONE DENSITY 2 SITES AXIAL (10/08/2022 3:55 PM MACHINE MAINTENANCE SERVICER) Anatomical Region Laterality Modality Spine, HIPS, HIPL, HIPR Other Impressions 10/11/2022 1:43 PM MACHINE MAINTENANCE SERVICER Osteopenia. RECOMMENDATIONS: The National Osteoporosis Foundation recommends [...] recommended in 3-5 years. Elissa Rogel PA-C [facility] 10/11/2022 Narrative 10/11/2022 1:43 PM MACHINE MAINTENANCE SERVICER For Patients: Results are automatically released to your [email or web address]) account once available, in compliance with federal regulations. This means that you may see your results before your provider has had a chance to review them. Please allow 2-3 business days for your provider to comment on the results. XR DXA Bone Mineral Density (BMD) EXAM LOCATION: [facility] [address] [facility] [address] PATIENT NAME: Gerber Aguillon DATE OF : [...] two scanners are made by the same industrial waste inspector. PROCEDURE: Dual-energy x-ray absorptiometry performed with routine [...] estrellita Non-React estrellita 01/26/2021 7:05 PM CDT [facility] Comment:Antibodies to HCV no t detected; does not exclude the possibility of exposure to HCV. Blood BLOOD SPECIMEN / Unknown Venipuncture / Unknown 01/26/2021 9:15 AM CDT 01/26/2021 9:15 AM CDT us Vickie Parham MD SEND OUTS Final Result [facility] [address] [place] [address], from Last 3 Months or Most Recently Relevant to Health Maintenance Insurance [employer] [place] [place] BLUE MR PB ONLY WC WORKERS COMP [facility] MOT[employer] VEHICLE INS ACCIDENT FUND [place] [id number] [facility] [address] [facility] [place] [address] [facility] [place] [address] Care Teams District Medical Examiner Relationship Specialty Start Date End Date Vickie Parham MD [address] [place] [address] PCP - General 02/28/06
[2024-12-29 12:15] VITALS: PULSE 75; O2SAT 98
== END 2024-12-29 12:24 | disposition home or self-care (01) ==
PROVIDERS: Emergency Provider Emergency Medicine Emergency Medical Services; PCP Family Medicine
DX: S09.90XA Unspecified injury of head, initial encounter (principal); W19.XXXA Unspecified fall, initial encounter
CPT/HCPCS: 36415; 70450; 80048; 85025; 99283; 99284

== ENCOUNTER 2025-01-18 12:30 | Outpatient (RCR) | payer MEDICARE, BC, SELFPAY ==
--- NOTE | 2024-09-01 14:13 | OT.OPOE ---
OT Outpatient Ortho Eval OT Outpatient Ortho Eval* Start: 09/01/24 12:33 Freq: Status: Active Protocol: Document 09/01/24 12:34 CSS (Rec: 09/01/24 13:29 CSS [id number]) E-signed By Jackie Zapata OTR/L OT OP Ortho Eval Details Complexity Complexity Low Insurance Information Insurance Information Blue Cross/Blue Shield, Medicare B Outpatient History/Precautions Current Condition/Medical Diagnosis Referring Provider Dr. Wiggins Medical Diagnoses status post trigger finger release Z98.890 Treatment Diagnosis pain in hand- M79.642 hand instability- M25.342 Edema- R22.32 stiffness of hand(fingers included)-M25.642 Date of Onset 08/03/24 Other Precautions no activity restrictions per MD Medical Conditions Metal Implants,Respiratory, Fibromyalgia,Arthritis,None Other Conditions allergies Medical/Functional History Medical History Reviewed Yes Prior Level of Function/Mobility indep with ADLs/IADLs at baseline Ortho Subjective Subjective Subjective Pt feels since sutures have been removed that L hand is more painful. Pt reports she is very active and has horses and is not able to ride since surgery. Pt has been doing chores for horses. Pt notes she is R hand dominant and has triggering on R fingers. Pt reports she drops things easily. Pain Assessment Pain Pain Yes Pain Comments 4/10- rest; 6/10 pain with touch Range of Motion and Strength Hand/Finger/Thumb Range of Motion and Strength Hand/Finger/Thumb Range of Motion and Does report in AM she is very Strength stiff and ROM is limited. L hand 3rd digit DIP flexion: 38 degrees; PIP flexion: 60 degrees; MCP flexion: 75 degrees L hand 4th digit DIP flexion: 35 degrees; PIP flexion: 63 degrees; MCP flexion: 78 degrees Hand Pinch/Dehydration Unit Operator Strength Hand Pinch/Dehydration Unit Operator Strength Hand Pinch/Dehydration Unit Operator Strength Left Hand,Right Hand Left Hand Dehydration Unit Operator Strength Position 1 in Elbow 36 Flexion (lbs) Lateral Pinch Strength (lbs) 12 Tip Pinch Strength (lbs) 9 Right Hand Dehydration Unit Operator Strength Position 1 in Elbow 57 Flexion (lbs) Lateral Pinch Strength (lbs) 18 Tip Pinch Strength (lbs) 13 Dexterity Dexterity Dexterity Left Hand,Right Hand Left Hand Scoring Times 9-Hole Peg Hand Test Scoring Time ( 21 seconds) Right Hand Scoring Times 9-Hole Peg Hand Test Scoring Time ( 18 seconds) OT Problems Problems Problems Decreased Strength,Pain, Sensory Sensitivity,Lifting, Gripping,Pinching Other Problems Opening Containers,Dressing, Fasteners,Sleeping Patient Potential Excellent Assessment Assessment Assessment Pt is a 68 year old female who is referred to OT status post trigger finger release in 3rd and 4th digits on L hand. Pt is currently limited in function due to pain, weakness and limited ROM since surgery . Pt would benefit from ongoing skilled OT to address symptoms to promote function in L hand and return to prior level functional status. Occupational Therapy Treatment Plan - OP Potential Rehabilitation Potential Excellent Set Goals Goals Set with Patient Yes Goals Goals 1) Pt will decrease pain to 0/ 10 pain at rest in 2 consistent sessions or more. 2) Pt will decrease pain to 2/ 10 pain with activity in 2 consistent sessions or more. 3) Pt will increase 3rd digit flexion in DIP, PIP, and MCP flexion by 10 degrees in each joint. 4) Pt will increase 4th digit flexion in DIP, PIP, and MCP flexion by 10 degrees in each joint. 5) Pt will return back to prior level functional status. Treatment Plan Treatment Plan Evaluation,Edema Control, Iontophoresis,Joint Mobilization,Manual Therapy, Ultrasound,Wound Care/Scar Management,Therapeutic Exercise,Therapeutic Activities,Self Care/Home Management,Education Expected Frequency 1x Week Expected Duration 12 weeks Home Program Home Program Home Program Initiated Certification Certification Statement I Certify That: Therapy Services Provided, Therapy Plan Established, Therapy Plan Reviewed Certification Information Clinic ID # [id number] Initial Certification Date 09/01/24 Recertification Due Date 11/24/24 Provider Signature Required Yes Provider Signature Shows Agreement With POC & Medical Necessity Physician NPI Number Write NPI# Here Physician Comment/Change Comment or Changes Physician Signature & Date Requested Please Sign/Date Here
--- NOTE | 2024-11-10 12:16 | OT.OPODN ---
OT Outpatient Ortho Daily Note OT Outpatient Ortho Daily Note* Start: 09/01/24 12:33 Freq: Status: Active Protocol: Document 11/10/24 12:02 CSS (Rec: 11/10/24 12:16 CSS [id number]) E-signed By Jackie Zapata OTR/Tiffanie Type of Note Type of Note Type of Note Daily Note,Recert/Progress Note Visit Number 5 Insurance Information Insurance Information Blue Cross/Blue Shield, Medicare B Outpatient History/Precautions Current Condition/Medical Diagnosis Referring Provider Dr. Wiggins Medical Diagnoses status post trigger finger release Z98.890 Treatment Diagnosis pain in hand- M79.642 hand instability- M25.342 Edema- R22.32 stiffness of hand(fingers included)-M25.642 Date of Onset 08/03/24 Other Precautions no activity restrictions per MD Medical Conditions Metal Implants,Respiratory, Fibromyalgia,Arthritis,None Other Conditions allergies Medical/Functional History Medical History Reviewed Yes Prior Level of Function/Mobility indep with ADLs/IADLs at baseline Ortho Subjective Subjective Subjective 11/10- reports hand is slowly getting better. Would like more therapy sessions as she feels she is slowly getting better but far from baseline. Notes concerns with ADLs/IADLs at this time. Unsure if she will do trigger finger release on R hand due to slow recovery of L hand. 11/03- reports she doesn't feel compression gloves are helping. Reports middle finger on L hand is very stiff in AM . 10/25/24: Pt notes overall pain and sensitivity is getting better; notes in AM hands are very stiff. Ortho provided with oval 8 to wear overnight but she does not feel this provides her with much relief. She notes that her biggest concern is her knuckles of L hand and not being able to get them straight; she is also concerned with weakness as she notes she can't open a container with L hand. 09/15: 3rd digit is very sore and can't flex it at night. Pt reports in AM it is very sore . Pt reports compliant with scar massage but feels it is worse. Reports that when its cold weather, pain increased. 09/01:Pt feels since sutures have been removed that L hand is more painful. Pt reports she is very active and has horses and is not able to ride since surgery. Pt has been doing chores for horses. Pt notes she is R hand dominant and has triggering on R fingers. Pt reports she drops things easily. Pain Assessment Pain Pain Yes Pain Comments L hand: rest- 0/10 7/10 in AM OT OP Daily Ortho Note/Assessment Therapeutic Exercise Therapeutic Exercise Minutes (minutes) 20 Therapeutic Exercise Comments Parrafin utilized as preparation for tissue extensibility before PROM. During Parrafin time, OT discusses pt's current concerns with ADL and IADL completion. PROM completed on L hand specifically with flexion of MCP, PIP and DIP joints of 1st-4th digits as intrinsic seem very tight. Pt has increased pain with MCP PROM extension. 1 set x 20-30 reps and then prolonged stretch. Discussion of resting hand splint at night however pt is not wanting to get hand splint. Pt educated on thumb exercises due to concerns of thumb weakness with thumb arthritis. Pt educated on exercises with band, tennis ball, and ROM including thumb flexion/extension and thumb ab /adduction. Manual Therapy Manual Therapy Minutes (minutes) 20 Manual Therapy Comments Instrument assisted soft tissue mobilization(IASTM) and cross friction massage completed on L volar palm of hand to control edema, increase ROM, and help decrease pain to promote functional use in L hand. scar massage completed in circular , vertical, and horizontal motion to break down scar tissue to prevent adhesion to increase ROM and reduce pain to promote function Ultrasound Ultrasound Minutes (minutes) 8 Ultrasound Location & Joint Position L palm Ultrasound Frequency & Mode 1 MHz Pulsed Intensity (w/cm2) 1.5 Ultrasound Comments Ultrasound completed to reduce edema, break down scar tissue and increase circulation to promote healing and functional use of UE. Total Occupational Therapy Time Occupational Therapy Minutes 48 Home Program Home Program Home Program Initiated,Compliant Home Program Specifics scar massage, tendon glides, scar pad, and icing contrast bath, theraputty; compression gloves; PROM stretches of L hand; heat as modality prior to stretches; thumb exercises; tissue extensibility with ball Range of Motion and Strength Hand/Finger/Thumb Range of Motion and Strength Hand/Finger/Thumb Range of Motion and L 3rd digit: DIP flexion: 64 Strength degrees PIP flexion: 80 degrees MCP flexion: 85 degrees Hand Pinch/Body Repairer Strength Hand Pinch/Body Repairer Strength Hand Pinch/Body Repairer Strength Left Hand,Right Hand Left Hand Body Repairer Strength Position 1 in Elbow 43 Flexion (lbs) Right Hand Body Repairer Strength Position 1 in Elbow 64 Flexion (lbs) OT Objective Data Hand Hand Dominance Right Dexterity Dexterity Dexterity Left Hand,Right Hand Left Hand Scoring Times 9-Hole Peg Hand Test Scoring Time ( 21 seconds) Right Hand Scoring Times 9-Hole Peg Hand Test Scoring Time ( 18 seconds) OT Problems Problems Problems Decreased Strength,Pain, Sensory Sensitivity,Lifting, Gripping,Pinching Other Problems Opening Containers,Dressing, Fasteners,Sleeping Patient Potential Excellent Assessment Assessment Assessment Pt is a 68 year old female who is referred to OT status post trigger finger release in 3rd and 4th digits on L hand. Pt is currently limited in function due to pain, weakness and limited ROM since surgery . Pt would benefit from ongoing skilled OT to address symptoms to promote function in L hand and return to prior level functional status. Occupational Therapy Treatment Plan - OP Potential Rehabilitation Potential Excellent Set Goals Goals Set with Patient Yes Goals Goals 1) Pt will decrease pain to 0/ 10 pain at rest in 2 consistent sessions or more. 2) Pt will decrease pain to 2/ 10 pain with activity in 2 consistent sessions or more. 3) Pt will increase 3rd digit flexion in DIP, PIP, and MCP flexion by 10 degrees in each joint. 4) Pt will increase 4th digit flexion in DIP, PIP, and MCP flexion by 10 degrees in each joint. 5) Pt will return back to prior level functional status. Treatment Plan Treatment Plan Evaluation,Edema Control, Iontophoresis,Joint Mobilization,Manual Therapy, Ultrasound,Wound Care/Scar Management,Therapeutic Exercise,Therapeutic Activities,Self Care/Home Management,Education Expected Frequency 1x Week Expected Duration 12 weeks Comment Summary HEP: ice, scar massage Occupational Therapy Billing Units Treatment Minutes Untimed Treatment Minutes 0 Timed Treatment Minutes 48 Total Treatment Minutes 48 Billing Units Manual Therapy 1 Therapeutic Exercise 2 Ultrasound 1 Certification Statement Certification Statement I Certify That: Therapy Services Provided, Therapy Plan Established, Therapy Plan Reviewed Recertification Information Recertification Information Initial Certification Date 09/01/24 Recertification Start Date 11/10/24 Recertification Due Date 01/05/25 Reasons to Continue Skilled Therapy Pt continues to have limited ROM and weakness impacting overall independence with ADLs /IADLs. Pt currently progressing with L apartment rental agent strength and L 3rd digit flexion AROM. Pt's pain also is better managed since starting therapy. Recommend ongoing skilled OT to increase ROM and increase strength to maximize indep with ADLs/IADLs . Rehabilitation Potential good- pt very motivated to work with therapy. Pt compliant with HEP. Pt continues to progress. Click To Default 'Per treatment plan' Per treatment plan Continued Plan of Care and Interventions Per treatment plan Provider Signature Required Yes Provider Signature Shows Agreement With POC & Medical Necessity Physician NPI Number Write NPI# Here Physician Comment/Change Comment or Changes Physician Signature & Date Requested Please Sign/Date Here
--- NOTE | 2024-12-02 14:51 | OT.OPODN ---
OT Outpatient Ortho Daily Note OT Outpatient Ortho Daily Note* Start: 09/01/24 12:33 Freq: Status: Active Protocol: Document 12/02/24 13:50 CSS (Rec: 12/02/24 14:50 CSS [id number]) E-signed By Jackie Zapata OTR/Tiffanie Type of Note Type of Note Type of Note Daily Note,Recert/Progress Note Visit Number 8 Insurance Information Insurance Information Blue Cross/Blue Shield, Medicare B Outpatient History/Precautions Current Condition/Medical Diagnosis Referring Provider Dr. Wiggins Medical Diagnoses status post trigger finger release Z98.890 Treatment Diagnosis pain in hand- M79.642 hand instability- M25.342 Edema- R22.32 stiffness of hand(fingers included)-M25.642 Date of Onset 08/03/24 Other Precautions no activity restrictions per MD Medical Conditions Metal Implants,Respiratory, Fibromyalgia,Arthritis,None Other Conditions allergies Medical/Functional History Medical History Reviewed Yes Prior Level of Function/Mobility indep with ADLs/IADLs at baseline Ortho Subjective Subjective Subjective 12/02- Pt reports she feels she is so weak; she reports she drops things often. reports she could lift half bucket of water. Has been sleeping with ball in L hand and reports it has helped decrease pain and stiffness in AM. 11/24- Pt notes difficult to lift 5# weight w/L arm due to arm weakness. Does note its hard to registered nurse onto weight. 11/17- reports L hand felt better in morning; she said she could move it and it wasn' t as stiff. Reports pain in L shoulder. She notes she fell in barn the other day. 11/10- reports hand is slowly getting better. Would like more therapy sessions as she feels she is slowly getting better but far from baseline. Notes concerns with ADLs/IADLs at this time. Unsure if she will do trigger finger release on R hand due to slow recovery of L hand. 11/03- reports she doesn't feel compression gloves are helping. Reports middle finger on L hand is very stiff in AM . 10/25/24: Pt notes overall pain and sensitivity is getting better; notes in AM hands are very stiff. Ortho provided with oval 8 to wear overnight but she does not feel this provides her with much relief. She notes that her biggest concern is her knuckles of L hand and not being able to get them straight; she is also concerned with weakness as she notes she can't open a container with L hand. 09/15: 3rd digit is very sore and can't flex it at night. Pt reports in AM it is very sore . Pt reports compliant with scar massage but feels it is worse. Reports that when its cold weather, pain increased. 09/01:Pt feels since sutures have been removed that L hand is more painful. Pt reports she is very active and has horses and is not able to ride since surgery. Pt has been doing chores for horses. Pt notes she is R hand dominant and has triggering on R fingers. Pt reports she drops things easily. Pain Assessment Pain Pain Yes Pain Comments L hand: rest- 12/20 activity- 02/19 OT OP Daily Ortho Note/Assessment Therapeutic Exercise Therapeutic Exercise Minutes (minutes) 20 Therapeutic Exercise Comments Parrafin utilized as preparation for tissue extensibility before PROM. PROM completed on L hand specifically with flexion/ extension of MCP, PIP and DIP joints of 1st-4th digits as intrinsic seem very tight. Pt has increased pain with MCP PROM extension. 1 set x 20-30 reps and then prolonged stretch. Discussion of night splint or splint during day to keep hand in extension; pt is unsure she wants to wear a splint at night. Manual Therapy Manual Therapy Minutes (minutes) 25 Manual Therapy Comments Instrument assisted soft tissue mobilization(IASTM) and cross friction massage completed on L volar palm of hand to control edema, increase ROM, and help decrease pain to promote functional use in L hand. scar massage completed in circular , vertical, and horizontal motion to break down scar tissue to prevent adhesion to increase ROM and reduce pain to promote function. Kineso-tape placed on L 3rd and 4th digits to promote extension through MCP joints; pt educated how to place on her hands with anchor and 50% pull then anchoring without pull. Total Occupational Therapy Time Occupational Therapy Minutes 45 Home Program Home Program Home Program Initiated,Compliant Home Program Specifics kineso tape, cinthia, AE for opening jars, scar massage, tendon glides, scar pad, and icing contrast bath, theraputty; compression gloves; PROM stretches of L hand; heat as modality prior to stretches; thumb exercises; tissue extensibility with ball Range of Motion and Strength Hand/Finger/Thumb Range of Motion and Strength Hand/Finger/Thumb Range of Motion and L 3rd digit: DIP flexion: 64 Strength degrees PIP flexion: 80 degrees MCP flexion: 85 degrees Hand Pinch/Psychological Operations Officer Strength Hand Pinch/Psychological Operations Officer Strength Hand Pinch/Psychological Operations Officer Strength Left Hand,Right Hand Left Hand Psychological Operations Officer Strength Position 1 in Elbow 43 Flexion (lbs) Right Hand Psychological Operations Officer Strength Position 1 in Elbow 64 Flexion (lbs) OT Objective Data Hand Hand Dominance Right Dexterity Dexterity Dexterity Left Hand,Right Hand Left Hand Scoring Times 9-Hole Peg Hand Test Scoring Time ( 21 seconds) Right Hand Scoring Times 9-Hole Peg Hand Test Scoring Time ( 18 seconds) OT Problems Problems Problems Decreased Strength,Pain, Sensory Sensitivity,Lifting, Gripping,Pinching Other Problems Opening Containers,Dressing, Fasteners,Sleeping Patient Potential Excellent Assessment Assessment Assessment Pt is a 68 year old female who is referred to OT status post trigger finger release in 3rd and 4th digits on L hand. Pt is currently limited in function due to pain, weakness and limited ROM since surgery . Pt would benefit from ongoing skilled OT to address symptoms to promote function in L hand and return to prior level functional status. Pt slowly is gaining ROM and strength in L hand but still has significant deficits impacting indep. Occupational Therapy Treatment Plan - OP Potential Rehabilitation Potential Excellent Set Goals Goals Set with Patient Yes Goals Goals 1) Pt will decrease pain to 0/ 10 pain at rest in 2 consistent sessions or more. 2) Pt will decrease pain to 2/ 10 pain with activity in 2 consistent sessions or more. 3) Pt will increase 3rd digit flexion in DIP, PIP, and MCP flexion by 10 degrees in each joint. 4) Pt will increase 4th digit flexion in DIP, PIP, and MCP flexion by 10 degrees in each joint. 5) Pt will return back to prior level functional status. Treatment Plan Treatment Plan Evaluation,Edema Control, Iontophoresis,Joint Mobilization,Manual Therapy, Ultrasound,Wound Care/Scar Management,Therapeutic Exercise,Therapeutic Activities,Self Care/Home Management,Education Expected Frequency 1-2x Week Expected Duration 12 weeks Occupational Therapy Billing Units Treatment Minutes Untimed Treatment Minutes 0 Timed Treatment Minutes 45 Total Treatment Minutes 45 Billing Units Manual Therapy 2 Therapeutic Exercise 1 Certification Statement Certification Statement I Certify That: Therapy Services Provided, Therapy Plan Established, Therapy Plan Reviewed Recertification Information Recertification Information Initial Certification Date 09/01/24 Recertification Start Date 11/10/24 Recertification Due Date 01/05/25 Reasons to Continue Skilled Therapy Pt continues to have limited ROM and weakness impacting overall independence with ADLs /IADLs. Pt currently progressing with L registered nurse strength and L 3rd digit flexion AROM. Pt's pain also is better managed since starting therapy. Recommend ongoing skilled OT to increase ROM and increase strength to maximize indep with ADLs/IADLs . Rehabilitation Potential good- pt very motivated to work with therapy. Pt compliant with HEP. Pt continues to progress. Click To Default 'Per treatment plan' Per treatment plan Continued Plan of Care and Interventions Per treatment plan Provider Signature Required Yes Provider Signature Shows Agreement With POC & Medical Necessity Physician NPI Number Write NPI# Here Physician Comment/Change Comment or Changes Physician Signature & Date Requested Please Sign/Date Here
--- NOTE | 2024-12-30 14:57 | OT.OPODN ---
OT Outpatient Ortho Daily Note OT Outpatient Ortho Daily Note* Start: 09/01/24 12:33 Freq: Status: Active Protocol: Document 12/30/24 14:06 CSS (Rec: 12/30/24 14:57 CSS [id number]) E-signed By Jackie Zapata OTR/L Type of Note Type of Note Type of Note Daily Note,Recert/Progress Note Visit Number [id number] Insurance Information Insurance Information Blue [employer], Medicare B Outpatient History/Precautions Current Condition/Medical Diagnosis Referring Provider Dr. Wiggins Medical Diagnoses status post trigger finger release Z98.890 Treatment Diagnosis pain in hand- M79.642 hand instability- M25.342 Edema- R22.32 stiffness of hand(fingers included)-M25.642 Date of Onset 08/03/24 Other Precautions no activity restrictions per MD Medical Conditions Metal Implants,Respiratory, Fibromyalgia,Arthritis,None Other Conditions allergies Medical/Functional History Medical History Reviewed Yes Prior Level of Function/Mobility indep with ADLs/IADLs at baseline Ortho Subjective Subjective Subjective Pt notes she went to ED and they did say she had concussion. She denies any confusion or double vision. She just notes some fatigue and balance impairment. pt feels coming 2x a week is helping. Pt would like to continue with therapy as she slowly progresses but is not at baseline at this time. Pain Assessment Pain Pain Yes Pain Comments L hand: rest- 0/10 activity- 3/10 OT OP Daily Ortho Note/Assessment Therapeutic Exercise Therapeutic Exercise Minutes (minutes) 30 Therapeutic Exercise Comments Parrafin utilized as preparation for tissue extensibility before PROM. PROM completed on L hand specifically with flexion/ extension of MCP, PIP and DIP joints of 1st-4th digits as intrinsic seem very tight. Pt has increased pain with MCP PROM extension. 1 set x 20-30 reps and then prolonged stretch. Instructed pt in resitive clips with L hand for 3 point pinch and lateral pinch to increase strength to promote functional use of L hand. Resistive clips included: yellow, green, red, blue and black. Manual Therapy Manual Therapy Minutes (minutes) 10 Manual Therapy Comments Instrument assisted soft tissue mobilization(IASTM) and cross friction massage completed on L volar palm of hand to control edema, increase ROM, and help decrease pain to promote functional use in L hand. scar massage completed in circular , vertical, and horizontal motion to break down scar tissue to prevent adhesion to increase ROM and reduce pain to promote function. Total Occupational Therapy Time Occupational Therapy Minutes 40 Home Program Home Program Home Program Initiated,Compliant Home Program Specifics finger nail clippers(adaptive) , CMC splints, kineso tape, dycem, AE for opening jars, scar massage, tendon glides, scar pad, and icing contrast bath, theraputty; compression gloves; PROM stretches of L hand; heat as modality prior to stretches; thumb exercises; tissue extensibility with ball Range of Motion and Strength Hand/Finger/Thumb Range of Motion and Strength Hand/Finger/Thumb Range of Motion and L 3rd digit: DIP flexion: 73 Strength degrees PIP flexion: 83 degrees MCP flexion: 92 degrees Hand Pinch/Air Technician Strength Hand Pinch/Air Technician Strength Hand Pinch/Air Technician Strength Left Hand,Right Hand Left Hand Air Technician Strength Position 1 in Elbow 48 Flexion (lbs) Right Hand Air Technician Strength Position 1 in Elbow 66 Flexion (lbs) OT Objective Data Hand Hand Dominance Right Dexterity Dexterity Dexterity Left Hand,Right Hand Left Hand Scoring Times 9-Hole Peg Hand Test Scoring Time ( 21 seconds) Right Hand Scoring Times 9-Hole Peg Hand Test Scoring Time ( 18 seconds) OT Problems Problems Problems Decreased Strength,Pain, Sensory Sensitivity,Lifting, Gripping,Pinching Other Problems Opening Containers,Dressing, Fasteners,Sleeping Patient Potential Excellent Assessment Assessment Assessment Pt is a 68 year old female who is referred to OT status post trigger finger release in 3rd and 4th digits on L hand. Pt is currently limited in function due to pain, weakness and limited ROM since surgery . Pt would benefit from ongoing skilled OT to address symptoms to promote function in L hand and return to prior level functional status. Pt slowly is gaining ROM and strength in L hand but still has significant deficits impacting indep. 12/21- Pt demonstrates increase in ROM and strength in L hand . Pt overall reports completing more activities with L hand but still frustrated with lack of progress. Recommend ongoing skilled OT due to ongoing progress. Occupational Therapy Treatment Plan - OP Potential Rehabilitation Potential Excellent Set Goals Goals Set with Patient Yes Goals Goals 1) Pt will decrease pain to 0/ 10 pain at rest in 2 consistent sessions or more. - goal met 2) Pt will decrease pain to 2/ 10 pain with activity in 2 consistent sessions or more. - progressing. 3) Pt will increase 3rd digit flexion in DIP, PIP, and MCP flexion by 10 degrees in each joint. - progressing 4) Pt will increase 4th digit flexion in DIP, PIP, and MCP flexion by 10 degrees in each joint. - goal met 5) Pt will return back to prior level functional status. Treatment Plan Treatment Plan Evaluation,Edema Control, Iontophoresis,Joint Mobilization,Manual Therapy, Ultrasound,Wound Care/Scar Management,Therapeutic Exercise,Therapeutic Activities,Self Care/Home Management,Education Expected Frequency 1-2x Week Expected Duration 12 weeks Occupational Therapy Billing Units Treatment Minutes Untimed Treatment Minutes 0 Timed Treatment Minutes 40 Total Treatment Minutes 40 Billing Units Manual Therapy 1 Therapeutic Exercise 2 Certification Statement Certification Statement I Certify That: Therapy Services Provided, Therapy Plan Established, Therapy Plan Reviewed Recertification Information Recertification Information Initial Certification Date 09/01/24 Recertification Start Date 12/30/24 Recertification Due Date 01/30/25 Reasons to Continue Skilled Therapy Pt continues to have limited ROM and weakness impacting overall independence with ADLs /IADLs. Pt currently progressing with L systems requirements planner strength and L 3rd digit flexion AROM. Pt's pain also is better managed since starting therapy. Recommend ongoing skilled OT to increase ROM and increase strength to maximize indep with ADLs/IADLs . Rehabilitation Potential good- pt very motivated to work with therapy. Pt compliant with HEP. Pt continues to slowly progress. Click To Default 'Per treatment plan' Per treatment plan Continued Plan of Care and Interventions Per treatment plan Provider Signature Required Yes Provider Signature Shows Agreement With POC & Medical Necessity Physician NPI Number Write NPI# Here Physician Comment/Change Comment or Changes Physician Signature & Date Requested Please Sign/Date Here
== END 2025-02-16 10:32 | disposition home or self-care (01) ==
PROVIDERS: PCP Family Medicine; Visit Provider Orthopaedic Surgery
DX: Z48.89 Encounter for other specified surgical aftercare (principal); Z51.89 Encounter for other specified aftercare
CPT/HCPCS: 97035; 97110; 97140; 97165; 97530; 97535; X5282